=== PATIENT | male | born 1975 | race Caucasian/White ===

== ENCOUNTER 2022-08-28 14:42 | Outpatient (AMB) | payer BC, SELFPAY ==
--- NOTE | 2022-08-28 15:42 | MHC.OFFVISPS ---
Intake Intake Visit Reasons: depression Medication List - Last Reconciled 08/28/22 by Julio Rodrigues MD divalproex 1,250 mg PO BEDTIME risperidone (Risperdal) 2 mg PO BEDTIME HPI- Psychiatric Chief Complaint: depression HPI Narrative: Patient is a 47-year-old male history of bipolar disorder has been under chronic stress do a lot to relational issues with his in relation to trust. That has been going better they are and couples counseling. The patient has generally been stable. There has been no evidence of tardive dyskinesia or diabetes. He has been generally stable on Depakote and Risperdal there has been some weight gain over time. He did in the past have hyponatremia on Trileptal. Some periods of anxiety but no significant depressive paranoid or manic episodes. There patient should be gain particularly destabilized when the patient had a manic episode We have discussed over time trying to taper down on Risperdal and see if he could eventually do monotherapy with Depakote He and his at this time ir still sleeping in separate bedrooms. Past Psychiatric History: History of manic psychotic episodes Subjective Subjective Subjective Medication Compliance: Yes Side effects from medications: No Mental Status Exam Mental Status Exam Patient Appearance: Well Grooomed Patient Orientation: Person, Place, Time and Situation Level of Consciousness: Awake and Appropriate Patient Behavior: Appropriate and Good Eye Contact Mood Description: Appropriate Affect Description: Appropriate and Apprehensive Patient Cognition Impaired: No Ability to Follow Directions: Good Speech Pattern: Clear Memory Description: Intact Hallucinations: None Delusions: Not Present Thought Process: Intact and Goal Oriented Thought Content: positive for Goal Oriented, positive for Preoccupation, positive for Logical, negative for Suicidal Ideation or negative for Homicidal Ideation Depressive Symptoms: Increased Anxiety Judgement: Good Judgement and Insight: Patient generally has restate belies the asking appropriate questions regarding long-term side effects able to take information. 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 No evidence of tardive dyskinesia. Patient has not had a breakthrough episode. Check Depakote level comprehensive metabolic profile testing including liver function tests lipid profile TSH reflex free T4 CBC. Consideration could be given to lowering Risperdal patient has generally not felt comfortable in doing this because of concerns regarding breakthrough Orders: Orders Comprehensive [place]. Panel Fast 08/28/22 F41.1 - Generalized anxiety disorder, F31.76 - Bipolar disorder, in full remission, most recent episode depressed, E78.00 - Pure hypercholesterolemia, unspecified Lipid Panel with Reflex 08/28/22 F41.1 - Generalized anxiety disorder, F31.76 - Bipolar disorder, in full remission, most recent episode depressed, E78.00 - Pure hypercholesterolemia, unspecified TSH reflex Free T4 08/28/22 F41.1 - Generalized anxiety disorder, F31.76 - Bipolar disorder, in full remission, most recent episode depressed, E78.00 - Pure hypercholesterolemia, unspecified Complete Blood Count Auto Diff 08/28/22 F41.1 - Generalized anxiety disorder, F31.76 - Bipolar disorder, in full remission, most recent episode depressed, E78.00 - Pure hypercholesterolemia, unspecified Valproate 08/28/22 F41.1 - Generalized anxiety disorder, F31.76 - Bipolar disorder, in full remission, most recent episode depressed, E78.00 - Pure hypercholesterolemia, unspecified Counseling and coordination of Care Details-Self Mgmt counseling: Discuss issues regarding meaning obtaining stability management of chronic stress in relationship to his which does seem to be going better. Past substance use patient has been sober Medication management counseling: Effectiveness, Side effects and Dosing range Diagnosis and Prognosis Counseling: Impact of diagnosis on life functions and Adequacy of current interventions Details: I spent [40] minutes reviewing the record, seeing the patient and documenting in the medical record. Counseling provided to the patient/caregiver as outlined below. Addressed patient/caregiver concerns regarding current medication regime including effective adherence. Addressed patient/caregiver concerns regarding diagnosis and prognosis including accuracy of diagnosis, prognosis over time, impact of diagnosis. Addressed patient/caregiver concerns regarding impact of recent stressors. 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
== END 2022-08-28 15:29 | disposition home or self-care (01) ==
LOC: HO.HOP 14:42
PROVIDERS: PCP Internal Medicine Geriatric Medicine; Visit Provider Psychiatry & Neurology Psychiatry
DX: F41.1 Generalized anxiety disorder (principal); F31.76 Bipolar disorder, in full remission, most recent episode depressed; Z63.0 Problems in relationship with spouse or partner
CPT/HCPCS: 90833; 99213

== ENCOUNTER → 2022-08-28 14:42 | Outpatient (BNVA) | payer BC, SELFPAY | PROVIDERS: PCP Internal Medicine Geriatric Medicine; Visit Provider Psychiatry & Neurology Psychiatry ==

== ENCOUNTER → 2022-12-30 15:20 | Outpatient (BNVA) | payer BC, SELFPAY | PROVIDERS: PCP Internal Medicine Geriatric Medicine; Visit Provider Psychiatry & Neurology Psychiatry | DX: F41.1 Generalized anxiety disorder (principal); F31.76 Bipolar disorder, in full remission, most recent episode depressed; E78.00 Pure hypercholesterolemia, unspecified ==

== ENCOUNTER 2023-06-03 14:37 | Outpatient (AMB) | payer BC, SELFPAY ==
--- NOTE | 2023-06-03 14:49 | A.OFFPSYCH_ITS ---
Intake Intake Visit Reasons: depression HPI- Psychiatric Chief Complaint: depression HPI Narrative: Pt seen in f/u generally doing well much closer with his still sleeping in separate beds masturbates 1 x wk in past turned to strip clubs and porn feels loved and cfared for but no sexuality feels good about current life situation has sleep apnea uses dental device plays pitch wed nite no doug or depression No doug or depression occasional insomnia Past Psychiatric History: History of manic psychotic episodes Mental Status Exam Mental Status Exam Patient Appearance: Well Grooomed Patient Orientation: Person, Place, Time and Situation Level of Consciousness: Awake and Appropriate Patient Behavior: Appropriate and Good Eye Contact Mood Description: Appropriate Affect Description: Appropriate and Apprehensive Patient Cognition Impaired: No Ability to Follow Directions: Good Speech Pattern: Clear Memory Description: Intact Hallucinations: None Delusions: Not Present Thought Process: Intact and Goal Oriented Thought Content: positive for Goal Oriented, positive for Preoccupation, positive for Logical, negative for Suicidal Ideation or negative for Homicidal Ideation Depressive Symptoms: Increased Anxiety Judgement: Good Judgement and Insight: Patient generally has restate belies the asking appropriate questions regarding long-term side effects able to take information. 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 Can lower Risperdal to 1.5 mg at bedtime monitor for cycling or doug. Patient will talk with his she has a great deal of difficulty tolerating his illness Medications: Changed 2 From divalproex 1,250 mg (2.5 x 500 mg) PO BEDTIME 30 days 75 tabs 3RF To divalproex 1,250 mg (2.5 x 500 mg) PO BEDTIME 75 tabs 3RF 30 days Refilled risperidone (Risperdal) 2 mg PO BEDTIME 30 tabs 3RF Orders: Orders TSH reflex Free T4 06/03/23 F31.76 - Bipolar disorder, in full remission, most recent episode depressed, F41.1 - Generalized anxiety disorder, E78.00 - Pure hypercholesterolemia, unspecified Vitamin B12 and Folate 06/03/23 F3.76 - Bipolar disorder, in full remission, most recent episode depressed, F41.1 - Generalized anxiety disorder, E78.00 - Pure hypercholesterolemia, unspecified Comprehensive [place]. Panel Fast 06/03/23 F31.76 - Bipolar disorder, in full remission, most recent episode depressed, F41.1 - Generalized anxiety disorder, E78.00 - Pure hypercholesterolemia, unspecified Complete Blood Count Auto Diff 06/03/23 F3.76 - Bipolar disorder, in full [place], most recent episode depressed, F41.1 - Generalized anxiety disorder, E78.00 - Pure hypercholesterolemia, unspecified Valproate 06/03/23 F3.76 - Bipolar disorder, in full remission, most recent episode depressed, F41.1 - Generalized anxiety disorder, E78.00 - Pure hypercholesterolemia, unspecified Lipid Panel 06/03/23 F3.76 - Bipolar disorder, in full remission, most recent episode depressed, E78.00 - Pure hypercholesterolemia, unspecified Counseling and coordination of Care Details: I spent [] minutes reviewing the record, seeing the patient and documenting in the medical record. Counseling provided to the patient/caregiver as outlined below. Addressed patient/caregiver concerns regarding current medication regime including effective adherence. Addressed patient/caregiver concerns regarding diagnosis and prognosis including accuracy of diagnosis, prognosis over time, impact of diagnosis. Addressed patient/caregiver concerns regarding impact of recent stressors. 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
== END 2023-06-03 16:04 | disposition home or self-care (01) ==
LOC: HO.HOP 14:37
PROVIDERS: Visit Provider Psychiatry & Neurology Psychiatry
DX: F31.76 Bipolar disorder, in full remission, most recent episode depressed (principal); F41.1 Generalized anxiety disorder
CPT/HCPCS: 90833; 99213

== ENCOUNTER → 2023-06-03 14:37 | Outpatient (BNVA) | payer BC, SELFPAY | PROVIDERS: Visit Provider Psychiatry & Neurology Psychiatry ==

== ENCOUNTER 2023-08-27 14:35 | Outpatient (AMB) | payer BC, SELFPAY ==
--- NOTE | 2023-08-27 14:54 | MHC.OFFVISPS ---
Intake Intake Visit Reasons: depression Medication List - Last Reconciled 08/31/23 by Julio Rodrigues MD clonazepam 0.5 mg PO BEDTIME PRN divalproex 1,250 mg (2.5 x 500 mg) PO BEDTIME 30 days risperidone 1.5 - 2 mg (1.5 - 2 x 1 mg) PO BEDTIME HPI- Psychiatric Chief Complaint: depression HPI Narrative: Pt seen in f/u mood has generally been stable enjoys teaching very much things are generally much more stable between him in his . There re committing to each other. 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 His mood has been stable some periods of anxiety at night no racing thoughts increased energy or paranoia. The patient is sober from any use of alcohol or substances. He has been able to go down on Risperdal to 1.5 alternating with 2 mg and continues on Depakote. His weight is stable although somewhat overweight his LDL mildly increase which is chronic any is being followed for this by his PCP he has been aware it is unclear whether he needs to be on Risperdal chronically or whether Depakote alone could maintain mood stabilization. Had had a prior episode on Trileptal Risperdal Risperdal that time was 0.5 mg Past Psychiatric History: History of manic psychotic episodes Mental Status Exam Mental Status Exam Patient Appearance: Well Grooomed Patient Orientation: Person, Place, Time and Situation Level of Consciousness: Awake and Appropriate Patient Behavior: Appropriate and Good Eye Contact Mood Description: Appropriate Affect Description: Appropriate Patient Cognition Impaired: No Ability to Follow Directions: Good Speech Pattern: Clear Memory Description: Intact Hallucinations: None Delusions: Not Present Thought Process: Intact and Goal Oriented Thought Content: positive for Goal Oriented, positive for Logical, negative for Suicidal Ideation or negative for Homicidal Ideation Judgement: Good Assessment and Plan Assessment & Plan (1) Bipolar 1 disorder, depressed, full remission: Status: Acute Code(s): F31.76 - Bipolar disorder, in full remission, most recent episode depressed (2) Generalized anxiety disorder: Status: Acute Code(s): F41.1 - Generalized anxiety disorder Plan No evidence of tardive dyskinesia on exam patient aware of long-term risks of Risperdal including increased cholesterol increased blood sugar and risk of tardive dyskinesia. 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 Has maintain excellent progress in general and is life work situation and much improved situation at home and connection with his No cycling no evidence of depression or doug continue Depakote at current doses level 50 there is room to increase patient has gained weight over time but is stable at this point lower Risperdal 1.5 mg patient can increase needed warned regarding paranoia cycling doug. Also discussed option to increase Depakote as going down on Risperdal did not like prior treatment with lithium Counseling and coordination of Care Details-Self Mgmt counseling: General issues related to being on medication chronic issues with his which are much improved Medication management counseling: Effectiveness, Side effects and Dosing range Diagnosis and Prognosis Counseling: Accuracy of diagnosis, Prognosis over time and Adequacy of current interventions Details: I spent [40] minutes reviewing the record, seeing the patient and documenting in the medical record. Counseling provided to the patient/caregiver as outlined below. Addressed patient/caregiver concerns regarding current medication regime including effective adherence. Addressed patient/caregiver concerns regarding diagnosis and prognosis including accuracy of diagnosis, prognosis over time, impact of diagnosis. Addressed patient/caregiver concerns regarding impact of recent stressors. 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
== END 2023-08-27 19:22 | disposition home or self-care (01) ==
LOC: HO.HOP 14:35
PROVIDERS: Visit Provider Psychiatry & Neurology Psychiatry
DX: F31.76 Bipolar disorder, in full remission, most recent episode depressed (principal); F41.1 Generalized anxiety disorder
CPT/HCPCS: 90833; 99213

== ENCOUNTER → 2023-08-27 14:35 | Outpatient (BNVA) | payer BC, SELFPAY | PROVIDERS: Visit Provider Psychiatry & Neurology Psychiatry ==

== ENCOUNTER 2023-11-24 14:34 | Outpatient (AMB) | payer BC, SELFPAY ==
--- NOTE | 2023-11-24 15:10 | MHC.OFFVISPS ---
Intake Intake Visit Reasons: depression Medication List - Last Reconciled 11/24/23 by Julio Rodrigues MD clonazepam 0.5 mg PO BEDTIME PRN divalproex 1,250 mg (2.5 x 500 mg) PO BEDTIME 30 days risperidone 1.5 - 2 mg (1.5 - 2 x 1 mg) PO BEDTIME HPI- Psychiatric Chief Complaint: depression HPI Narrative: Pt seen in psychiatric follow-up. Patient' has a history elderly manic with psychotic features. 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 He and his have been getting along generally well patient somewhat resigned to not having an ongoing sexual relationship which in the past has been a somewhat fraught issue. 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 He has been able to lower Risperdal to 1.5 mg. Has not needed to take any half mg doses Past Psychiatric History: History of manic psychotic episodes and past hospitalizations Mental Status Exam Mental Status Exam Patient Appearance: Well Grooomed Patient Orientation: Person, Place, Time and Situation Level of Consciousness: Awake and Appropriate Patient Behavior: Appropriate and Good Eye Contact Mood Description: Appropriate Affect Description: Appropriate Patient Cognition Impaired: No Ability to Follow Directions: Good Speech Pattern: Clear Memory Description: Intact Hallucinations: None Delusions: Not Present Thought Process: Intact and Goal Oriented Thought Content: positive for Goal Oriented, positive for Logical, negative for Suicidal Ideation or negative for Homicidal Ideation Judgement: Good Assessment and Plan Assessment & Plan (1) Generalized anxiety disorder: Status: Acute Code(s): F41.1 - Generalized anxiety disorder (2) Bipolar 1 disorder, depressed, full remission: Status: Acute Code(s): F31.76 - Bipolar disorder, in full remission, most recent episode depressed Plan Labs ordered check Depakote CBC continues 1250 mg Depakote she has been on for an extended period of time extensive discussion that Depakote alone might be appropriate monotherapy and plan could be to taper Risperdal very gradually over time. Consider lowering to 1 mg he is fearful of any breakthrough on Depakote alone risks benefits alternatives reviewed. No evidence abnormal movement or dyskinesia on exam. Patient also notes no significant movements Patient fearful of relapse and its affect potentially on his marriage Medications: Changed From divalproex 1,250 mg (2.5 x 500 mg) PO BEDTIME 30 days 75 tabs 3RF To divalproex 1,250 mg (2.5 x 500 mg) PO BEDTIME 225 tabs 1RF 90 days Refilled risperidone 1.5 - 2 mg (1.5 - 2 x 1 mg) PO BEDTIME 180 tabs 1RF Counseling and coordination of Care Details-Self Mgmt counseling: Discussion regarding marital issues sexual functioning Medication management counseling: Effectiveness, Side effects and Dosing range Details-Med Mgmt counseling: Discussion regarding risks benefits alternatives risks of tardive dyskinesia Diagnosis and Prognosis Counseling: Accuracy of diagnosis, Prognosis over time, Impact of family relationship and Adequacy of current interventions Details: I spent [42] minutes reviewing the record, seeing the patient and documenting in the medical record. Counseling provided to the patient/caregiver as outlined below. Addressed patient/caregiver concerns regarding current medication regime including effective adherence. Addressed patient/caregiver concerns regarding diagnosis and prognosis including accuracy of diagnosis, prognosis over time, impact of diagnosis. Addressed patient/caregiver concerns regarding impact of recent stressors. 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
== END 2023-11-24 14:48 | disposition home or self-care (01) ==
LOC: HO.HOP 14:34
PROVIDERS: Visit Provider Psychiatry & Neurology Psychiatry
DX: F41.1 Generalized anxiety disorder (principal); F31.76 Bipolar disorder, in full remission, most recent episode depressed
CPT/HCPCS: 90833; 99213

== ENCOUNTER → 2023-11-24 14:34 | Outpatient (BNVA) | payer BC, SELFPAY | PROVIDERS: Visit Provider Psychiatry & Neurology Psychiatry ==

== ENCOUNTER 2024-03-23 14:45 | Outpatient (AMB) | payer BC, SELFPAY ==
--- NOTE | 2024-03-23 15:28 | A.OFFPSYCH_ITS ---
Intake Intake Visit Reasons: depression HPI- Psychiatric Chief Complaint: depression HPI Narrative: Pt seen in psych f/u the pt has generally been stable and has been able to dec risp by 0.5 mg with no reported ill effects . At times the pt has difficulty telling doug from being happy after an event. No clear euphoria racing thoughts paranoia agitation decreased need for sleep. Occasional insomnia with anxiety that is relieved by low-dose clonazepam rarely. No substance use. No impulsive or erratic behavior. Things are stable between him self in his . No new medical concerns has known he has inc ldl triglycerides. Past Psychiatric History: History of manic psychotic episodes and past hospitalizations Mental Status Exam Mental Status Exam Patient Appearance: Well Grooomed Patient Orientation: Person, Place, Time and Situation Level of Consciousness: Awake and Appropriate Patient Behavior: Appropriate and Good Eye Contact Mood Description: Appropriate Affect Description: Appropriate and Anxious Patient Cognition Impaired: No Ability to Follow Directions: Good Speech Pattern: Clear Memory Description: Intact Hallucinations: None Delusions: Not Present Thought Process: Intact and Goal Oriented Thought Content: positive for Goal Oriented, positive for Logical, negative for Suicidal Ideation or negative for Homicidal Ideation Judgement: Good Judgement and Insight: mild anxiety able to take in sx to be concerned about Assessment and Plan Assessment & Plan (1) Bipolar 1 disorder, depressed, full remission: Status: Acute Code(s): F31.76 - Bipolar disorder, in full remission, most recent episode depressed (2) Generalized anxiety disorder: Status: Acute Code(s): F41.1 - Generalized anxiety disorder (3) Hyperlipemia: Status: Acute Code(s): E78.5 - Hyperlipidemia, unspecified Plan Check Depakote level lipid panel metabolic panel including blood sugar TSH history of mildly elevated TSH. Labs also sent PCP. Reviewed risks symptoms with patient and the possibility to increase Risperdal if any elevated mood states racing thoughts paranoia recur. Patient has not relapsed for a number of years. Have discussed with him that clear whether he needs to be on antipsychotic ongoing that Depakote could be enough of a treatment ongoing but difficult to tell. Patient had broken through Trileptal in the past. Orders: Orders TSH reflex Free T4 1 Week F31.76 - Bipolar disorder, in full remission, most recent episode depressed, F41.1 - Generalized anxiety disorder, E78.5 - Hyperlipidemia, unspecified Valproate 1 Week F3. - Bipolar disorder, in full remission, most recent episode depressed, F41.1 - Generalized anxiety disorder, E78.5 - Hyperlipidemia, unspecified Lipid Panel 1 Week F3. - Bipolar disorder, in full remission, most recent episode depressed, F41.1 - Generalized anxiety disorder, E78.5 - Hyperlipidemia, unspecified Comprehensive [place]. Panel Fast 1 Week F3. - Bipolar disorder, in full remission, most recent episode depressed, F41.1 - Generalized anxiety disorder, E78.5 - Hyperlipidemia, unspecified Triiodothyronine T3 Free 1 Week F3. - Bipolar disorder, in full remission, most recent episode depressed, F41.1 - Generalized anxiety disorder, E78.5 - Hyperlipidemia, unspecified Counseling and coordination of Care Details-Self Mgmt counseling: Issues related to managing stress related to having bipolar disorder patient was quite traumatized by last relapse and had began packed in his marriage and has been committed to try and preventing relapse over time. Discussed the we could continue further lowering of Risperdal gradually Details-Diagnosis/Prognosis counseling: Issues related balance between medication and long-term risk factors versus relapse issues. Details: I spent [39] minutes reviewing the record, seeing the patient and documenting in the medical record. Counseling provided to the patient/caregiver as outlined below. Addressed patient/caregiver concerns regarding current medication regime including effective adherence. Addressed patient/caregiver concerns regarding diagnosis and prognosis including accuracy of diagnosis, prognosis over time, impact of diagnosis. Addressed patient/caregiver concerns regarding impact of recent stressors. 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 Generalized anxiety disorder F41.1 Hyperlipemia E78.5
== END 2024-03-23 16:20 | disposition home or self-care (01) ==
LOC: HO.HOP 14:45
PROVIDERS: Visit Provider Psychiatry & Neurology Psychiatry
DX: F31.76 Bipolar disorder, in full remission, most recent episode depressed (principal); F41.1 Generalized anxiety disorder; E78.5 Hyperlipidemia, unspecified
CPT/HCPCS: 90833; 99213

== ENCOUNTER → 2024-03-23 14:45 | Outpatient (BNVA) | payer BC, SELFPAY | PROVIDERS: Visit Provider Psychiatry & Neurology Psychiatry ==

== ENCOUNTER 2024-07-20 15:28 | Outpatient (AMB) | payer BC, SELFPAY ==
--- NOTE | 2024-07-20 15:58 | A.OFFPSYCH_ITS ---
Intake Intake Visit Reasons: depression HPI- Psychiatric Chief Complaint: depression HPI Narrative: Patient seen psychiatric follow-up. Patient is a history of bipolar disorder manic with past psychotic features. Patient has not had an episode for many years. Patient has been stable on Depakote times years has been on Risperdal 1.5 mg down from 2 mg. Patient has noted no evidence of abnormal movements he is aware of tardive dyskinesia risk increased blood sugar risk. No manic or depressive symptoms occasional use of clonazepam at bedtime to help with sleep. Patient used to have financial anxiety has paid off mortgage feeling much more comfortable. He and his getting along well Past Psychiatric History: History of manic psychotic episodes and past hospitali zations Mental Status Exam Mental Status Exam Patient Appearance: Well Grooomed Patient Orientation: Person, Place, Time and Situation Level of Consciousness: Awake and Appropriate Patient Behavior: Appropriate and Good Eye Contact Mood Description: Calm, Appropriate and Relaxed Affect Description: Calm, Appropriate and Relaxed Patient Cognition Impaired: No Ability to Follow Directions: Good Speech Pattern: Clear Memory Description: Intact Hallucinations: None Delusions: Not Present Thought Process: Intact and Goal Oriented Thought Content: positive for Goal Oriented, positive for Logical, negative for Suicidal Ideation or negative for Homicidal Ideation Judgement: Good Judgement and Insight: mild anxiety able to take in sx to be concerned about Assessment and Plan Assessment & Plan (1) Bipolar 1 disorder, manic, full remission: Status: Acute Code(s): F31.74 - Bipolar disorder, in full remission, most recent episode manic (2) Hypercholesteremia: Status: Acute Code(s): E78.00 - Pure hypercholesterolemia, unspecified (3) Generalized anxiety disorder: Status: Acute Code(s): F41.1 - Generalized anxiety disorder Plan pt doing well mood stable no evidence of tardive dyskinesia on aims no movements noted. Check code level CBC Chem profile TSH metabolic profile. Has had mild elevated cholesterol in the past copy to his PCP. Have discussed with patient possibility to further taper Risperdal however he is quite anxious about having another manic breakthrough episode and how his might respond. He is aware of long-term tardive dyskinesia risks Medications: Refilled clonazepam administer 30 minutes before bedtime 0.5 mg PO BEDTIME PRN 14 tabs 2RF insomnia risperidone 1.5 - 2 mg (1.5 - 2 x 1 mg) PO BEDTIME 180 tabs 1RF divalproex 1,250 mg (2.5 x 500 mg) PO BEDTIME 225 tabs 2RF 90 days Orders: Orders Vitamin B12 and Folate 07/20/24 E78.00 - Pure hypercholesterolemia, unspecified, F31.76 - Bipolar disorder, in full remission, most recent episode depressed, F41.1 - Generalized anxiety disorder Valproate 07/20/24 E78.00 - Pure hypercholesterolemia, unspecified, F31.76 - B ipolar disorder, in full remission, most recent episode depressed, F41.1 - Generalized anxiety disorder TSH reflex Free T4 07/20/24 E78.00 - Pure hypercholesterolemia, unspecified, F31.76 - Bipolar disorder, in full remission, most recent episode depressed, F41.1 - Generalized anxiety disorder Lipid Panel 07/20/24 E78.00 - Pure hypercholesterolemia, unspecified, F31.76 - Bipolar disorder, in full remission, most recent episode depressed, F41.1 - Generalized anxiety disorder Comprehensive [place]. Panel Fast 07/20/24 E78.00 - Pure hypercholesterolemia, unspecified, F31.76 - Bipolar disorder, in full remission, most recent episode depressed, F41.1 - Generalized anxiety disorder Complete Blood Count Auto Diff 07/20/24 E78.00 - Pure hypercholesterolemia, unspecified, F31.76 - Bipolar disorder, in full remission, most recent episode depressed, F41.1 - Generalized anxiety disorder Counseling and coordination of Care Medication management counseling: Effectiveness, Side effects and Dosing range Diagnosis and Prognosis Counseling: Adequacy of current interventions Details-Diagnosis/Prognosis counseling: Issues related to chronic use of Risperdal discussed alternatives discussed Details: I spent [38] minutes reviewing the record, seeing the patient and documenting in the medical record. Counseling provided to the patient/caregiver as outlined below. Addressed patient/caregiver concerns regarding current medication regime including effective adherence. Addressed patient/caregiver concerns regarding diagnosis and prognosis including accuracy of diagnosis, prognosis over time, impact of diagnosis. Addressed patient/caregiver concerns regarding impact of recent stressors. 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
== END 2024-07-20 15:32 | disposition home or self-care (01) ==
LOC: HO.HOP 15:28
PROVIDERS: Visit Provider Psychiatry & Neurology Psychiatry
DX: F31.74 Bipolar disorder, in full remission, most recent episode manic (principal); E78.00 Pure hypercholesterolemia, unspecified; F41.1 Generalized anxiety disorder
CPT/HCPCS: 90833; 99213

== ENCOUNTER → 2024-07-20 15:28 | Outpatient (BNVA) | payer BC, SELFPAY | PROVIDERS: Visit Provider Psychiatry & Neurology Psychiatry ==

== ENCOUNTER 2024-08-11 14:33 | Outpatient (AMB) | payer BC, SELFPAY ==
--- NOTE | 2024-08-11 15:17 | A.OFFPSYCH_ITS ---
Intake Intake Visit Reasons: depression Medication List - Last Reconciled 08/11/24 by Julio Rodrigues MD clonazepam 0.5 mg PO BEDTIME PRN divalproex 1,500 mg (3 x 500 mg) PO BEDTIME 90 days risperidone 1.5 - 2 mg (1.5 - 2 x 1 mg) PO BEDTIME HPI- Psychiatric Chief Complaint: depression HPI Narrative: Patient seen psychiatric follow-up. 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 Patient did raise Risperdal back to 2 mg at bedtime appeared to decrease any racing thoughts mood instability. Use clonazepam p.r.n. anxiety insomnia. Patient's mood generally stable we have discussed different treatment options over time was on lithium in the past. Has done well generally on combination Depakote and Risperdal Past Psychiatric History: History of manic psychotic episodes and past hospitalizations Mental Status Exam Mental Status Exam Patient Appearance: Well Grooomed Patient Orientation: Person, Place, Time and Situation Level of Consciousness: Awake and Appropriate Patient Behavior: Appropriate and Good Eye Contact Mood Description: Appropriate and Apprehensive Affect Description: Calm, Appropriate and Constricted Patient Cognition Impaired: No Ability to Follow Directions: Good Speech Pattern: Clear Memory Description: Intact Hallucinations: None Delusions: Not Present Thought Process: Intact and Goal Oriented Thought Content: positive for Goal Oriented, positive for Logical, negative for Suicidal Ideation or negative for Homicidal Ideation Judgement: Good Judgement and Insight: mild anxiety recent stress regarding some insomnia question mixed hypomania beginning Assessment and Plan Assessment & Plan (1) Bipolar 1 disorder, manic, full remission: Status: Acute Code(s): F31.74 - Bipolar disorder, in full remission, most recent episode manic (2) Generalized anxiety disorder: Status: Acute Code(s): F41.1 - Generalized anxiety disorder Plan Discussed increasing Depakote to 1500 mg from 12 50 better control of mood instability recent hypomania no gross who is hallucinations or paranoia. Things generally going well at home CBC Chem profile Depakote level ordered including ammonia had been seen on July 20 things had been going well Risperdal had been slightly lowered will increased back and increase Depakote which may allow lower dose of Risperdal at some point Medications: Changed From divalproex 1,250 mg (2.5 x 500 mg) PO BEDTIME 90 days 225 tabs 2RF To divalproex 1,500 mg (3 x 500 mg) PO BEDTIME 270 tabs 2RF 90 days Orders: Orders Ammonia 08/11/24 F41.1 - Generalized anxiety disorder, F31.74 - Bipolar disorder, in full remission, most recent episode manic Counseling and coordination of Care Details-Self Mgmt counseling: Issues related to chronic anxiety and marriage anxiety regarding bipolar disorder patient has been sober times many years she is related to management at school Details-Med Mgmt counseling: Patient aware of long-term risks benefits with antipsychotics dyskinesia on exam patient aware of long-term risks of elevated blood sugar tardive dyskinesia Diagnosis and Prognosis Counseling: Prognosis over time and Adequacy of current interventions Details: I spent [37] minutes reviewing the record, seeing the patient and documenting in the medical record. Counseling provided to the patient/caregiver as outlined below. Addressed patient/caregiver concerns regarding current medication regime including effective adherence. Addressed patient/caregiver concerns regarding diagnosis and prognosis including accuracy of diagnosis, prognosis over time, impact of diagnosis. Addressed patient/caregiver concerns regarding impact of recent stressors. 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
== END 2024-08-11 15:37 | disposition home or self-care (01) ==
LOC: HO.HOP 14:33
PROVIDERS: Visit Provider Psychiatry & Neurology Psychiatry
DX: F31.74 Bipolar disorder, in full remission, most recent episode manic (principal); F41.1 Generalized anxiety disorder
CPT/HCPCS: 99214

== ENCOUNTER → 2024-08-11 14:33 | Outpatient (BNVA) | payer BC, SELFPAY | PROVIDERS: Visit Provider Psychiatry & Neurology Psychiatry ==

== ENCOUNTER 2024-11-30 14:34 | Outpatient (REF) | payer BC, SELFPAY ==
[2024-11-30 16:21] LABS: Ammonia 42 umol/L (13-55)
[2024-11-30 17:08] LABS: Alanine Aminotransferase 17 U/L (0-40); Albumin Level 4.8 g/dL (3.5-5.0); Alkaline Phosphatase 62 U/L (39-117); Aspartate Amino Transferase 23 U/L (5-37); Total Protein 7.4 g/dL (6.5-8.0)
[2024-12-06 06:53] LABS: Lamotrigine Lamictal <0.5 mcg/mL (2.5-15.0)
== END 2024-11-30 14:35 | disposition home or self-care (01) ==
LOC: HO.LAB 14:34
PROVIDERS: Visit Provider Psychiatry & Neurology Psychiatry
DX: F31.76 Bipolar disorder, in full remission, most recent episode depressed (principal); E78.00 Pure hypercholesterolemia, unspecified; F41.1 Generalized anxiety disorder; Z51.81 Encounter for therapeutic drug level monitoring
CPT/HCPCS: 36415; 80076; 80175; 82140

== ENCOUNTER 2024-11-30 14:34 | Outpatient (AMB) | payer BC, SELFPAY ==
--- NOTE | 2024-11-30 14:52 | A.OFFPSYCH_ITS ---
Intake Intake Visit Reasons: depression Medication List - Last Reconciled 11/30/24 by Julio Rodrigues MD clonazepam 0.5 mg PO BEDTIME PRN divalproex 1,500 mg (3 x 500 mg) PO BEDTIME 90 days risperidone 1.5 - 2 mg (1.5 - 2 x 1 mg) PO BEDTIME HPI- Psychiatric Chief Complaint: depression HPI Narrative: Pt seen in f/u mood has been good generally ok was teaching in [employer] .Some fatigue in the am . No manic symptoms no depressive symptoms no paranoia. Things going well between him and his . 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 No new medical concerns has been on 1500 mg of Depakote since last minimal breakthrough continues on Risperdal 2 mg. No oral facial dyskinesia mild tremor no other abnormal movements Past Psychiatric History: History of manic psychotic episodes and past hospitalizations Mental Status Exam Mental Status Exam Patient Appearance: Well Grooomed Patient Orientation: Person, Place, Time and Situation Level of Consciousness: Awake and Appropriate Patient Behavior: Appropriate and Good Eye Contact Mood Description: Calm and Appropriate Affect Description: Calm and Appropriate Patient Cognition Impaired: No Ability to Follow Directions: Good Speech Pattern: Clear Memory Description: Intact Hallucinations: None Delusions: Not Present Thought Process: Intact and Goal Oriented Thought Content: positive for Goal Oriented, positive for Logical, negative for Suicidal Ideation or negative for Homicidal Ideation Judgement: Good Judgement and Insight: Mild tremor noted otherwise good insight and impulse control Results Reviewed Results Reviewed: Ammonia level ordered not elevated Assessment and Plan Assessment & Plan (1) Generalized anxiety disorder: Status: Acute Code(s): F41.1 - Generalized anxiety disorder (2) Bipolar 1 disorder, manic, full remission: Status: Acute Code(s): F31.74 - Bipolar disorder, in full remission, most recent episode manic (3) Hyperlipemia: Status: Acute Code(s): E78.5 - Hyperlipidemia, unspecified Orders: Orders Lamotrigine Lamictal 11/30/24 E78.5 - Hyperlipidemia, unspecified, F31.76 - Bipolar disorder, in full remission, most recent episode depressed, Z51.81 - Encounter for therapeutic drug level monitoring Ammonia 11/30/24 E78.5 - Hyperlipidemia, unspecified, F31.76 - Bipolar disorder, in full remission, most recent episode depressed, Z51.81 - Encounter for therapeutic drug level monitoring Liver Panel 11/30/24 E78.5 - Hyperlipidemia, unspecified, F31.76 - Bipolar disorder, in full remission, most recent episode depressed, Z51.81 - Encounter for therapeutic drug level monitoring Complete Blood Count Auto Diff 1 Month E78.00 - Pure hypercholesterolemia, unspecified, E78.5 - Hyperlipidemia, unspecified, F31.76 - Bipolar disorder, in full remission, most recent episode depressed, Z51.81 - Encounter for the rapeutic drug level monitoring Vitamin B12 and Folate 1 Month E78.00 - Pure hypercholesterolemia, unspecified, E78.5 - Hyperlipidemia, unspecified, F31.76 - Bipolar disorder, in full remission, most recent episode depressed, Z51.81 - Encounter for therapeutic drug level monitoring Lipid Panel 1 Month E78.00 - Pure hypercholesterolemia, unspecified, E78.5 - Hyperlipidemia, unspecified, F31.76 - Bipolar disorder, in full remission, most recent episode depressed, Z51.81 - Encounter for therapeutic drug level monitoring Comprehensive [place]. Panel Fast 1 Month E78.00 - Pure hypercholesterolemia, unspecified, E78.5 - Hyperlipidemia, unspecified, F31.76 - Bipolar disorder, in full remission, most recent episode depressed, Z51.81 - Encounter for therapeutic drug level monitoring TSH reflex Free T4 1 Month E78.00 - Pure hypercholesterolemia, unspecified, E78.5 - Hyperlipidemia, unspecified, F31.76 - Bipolar disorder, in full remission, most recent episode depressed, Z51.81 - Encounter for therapeutic drug level monitoring Vitamin D 25-OH (D2 and D3) 1 Month E78.00 - Pure hypercholesterolemia, unspecified, E78.5 - Hyperlipidemia, unspecified, F31.76 - Bipolar disorder, in full remission, most recent episode depressed, Z51.81 - Encounter for therapeutic drug level monitoring Valproate 1 Month F31.74 - Bipolar disorder, in full remission, most recent episode manic Valproate 11/30/24 E78.00 - Pure hypercholesterolemia, unspecified, E78.5 - Hyperlipidemia, unspecified, F31.76 - Bipolar disorder, in full remission, most recent episode depressed, Z51.81 - Encounter for therapeutic drug level monitoring Basic Metabolic Panel 11/30/24 E78.00 - Pure hypercholesterolemia, unspecified, E78.5 - Hyperlipidemia, unspecified, F31.76 - Bipolar disorder, in full remission, most recent episode depressed, Z51.81 - Encounter for therapeutic drug level monitoring Counseling and coordination of Care Details-Self Mgmt counseling: Issues related teaching Medication management counseling: Effectiveness, Side effects and Dosing range Details-Med Mgmt counseling: Question regarding increased ammonia may have been a different ranged from lab [employer] recheck ammonia Diagnosis and Prognosis Counseling: Impact of diagnosis on life functions and Adequacy of current interventions Details-Diagnosis/Prognosis counseling: Check Depakote level blood sugar LFTs lipids. Consider trying to decrease Risperdal Details: I spent [39] minutes reviewing the record, seeing the patient and documenting in the medical record. Counseling provided to the patient/caregiver as outlined below. Addressed patient/caregiver concerns regarding current medication regime including effective adherence. Addressed patient/caregiver concerns regarding diagnosis and prognosis including accuracy of diagnosis, prognosis over time, impact of diagnosis. Addressed patient/caregiver concerns regarding impact of recent stressors. 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
--- OUTSIDE RECORDS SUMMARY | 2024-11-30 18:15 | XMS_ITS | Clinical Summary ---
Author Organization [facility] Address [address] [place] [phone] Phone Care Team Providers Care Household Appliance Repairer Name Role Phone Amanda Hdz DO Primary Care Provider [phone] Medications divalproex (DEPAKOTE) [address] tablet TAKE 2 AND 1/2 TABS BY MOUTH DAILY AT BEDTIME 03/27/2023 Active risperiDONE (RISPERDAL) 2 MG tablet take 1 tablet by mouth everyday at bedtime 04/20/2023 Active clonazePAM (KLONOPIN) 0.5 MG tablet As needed 04/10/2023 Active Active Problems No known active problems Social History Tobacco Use Types Packs/Day Years Used Date Smoking Tobacco: Never Assessed Education Answer Date Recorded Are you interested in more education? Not on jo e 04/23/2023 Are you concerned about learning? Not on file 04/23/2023 No 04/23/2023 No 04/23/2023 Digital Access Answer Date Recorded No 04/23/2023 No 04/23/2023 Reliable internet access at home? Not on file 04/23/2023 Device with a working camera? Not on file Sex and Gender Information Value Date Recorded Sex Assigned at Not on file Legal Sex Male 1:11 PM EST Gender Identity Not on file Sexual Orientation Not on file Plan of Treatment Health Maintenance Due Date Last Done Comments Adult Td,Tdap Booster 1977 LIPID PANEL 1977 VALPROIC ACID (DEPAKENE) LEVEL 1977 DEPRESSION SCREENING 1989 SMOKING Hx and SMOKELESS TOBACCO SCREENING 1990 HEPATITIS C SCREENING 06/22/1995 HIV ONE-TIME SCREENING (18-6 5 YEARS) 06/22/1995 COLOGUARD 2022 COLONOSCOPY 2022 COLORECTAL CANCER SCREENING 2022 FIT TEST 2022 FOBT 2022 SIGMOIDOSCOPY 2022 VIRTUAL COLONOSCOPY 2022 INFLUENZA VACCINE (#1) 2024 COVID-19 VACCINE (2024-2 6 season) 2024 03/22/2021, 06/18/2020 HEPATITIS A VACCINES Aged Out No long er eligible based on patient's age to complete this topic HIB VACCINES Aged Out No longer eligi ble based on patient's age to complete this topic MENINGOCOCCAL VACCINES (ACWY) Aged Out No longer eligible based on patient's age to complete this topic MENINGOCOCCAL VACCINES (B) Aged Out N o longer eligible based on patient's age to complete this topic PNEUMOCOCCAL VACCINES (0-49 years) Aged Out No longer eligible b ased on patient's age to complete this topic Medical Devices Not on file Insurance [employer] Care Teams Household Appliance Repairer Relationship Specialty Start Date End Date Amanda Hdz DO [address] [place] [phone] PCP - General Family Medicine 04/23/23 Additional Source Comments The information contained in this document represents components of the legal health record. It is not the complete legal health record.[facility]
== END 2024-11-30 15:13 | disposition home or self-care (01) ==
LOC: HO.HOP 14:34
PROVIDERS: Visit Provider Psychiatry & Neurology Psychiatry
DX: F41.1 Generalized anxiety disorder (principal); F31.74 Bipolar disorder, in full remission, most recent episode manic; E78.5 Hyperlipidemia, unspecified
CPT/HCPCS: 90833; 99213